=== PATIENT | male | born 1950 | race Caucasian/White ===

== ENCOUNTER 2019-03-15 08:00 | Inpatient (IN) | payer BC, OTHER ==
[~2019-03-15] VITALS: Ht 160 cm; Wt 71.3 kg
[~2019-03-15 08:00] MED LIST: ASPI81TA52 PO; ATOR-2 PO; METF100010 PO; METO-407 PO; NOVMIX SC
[2019-03-18] VITALS (19 sets, daily range): BP systolic 108–157; BP diastolic 55–77; PULSE 62–97; RESP 14–19; Ht 160 cm; Wt 71.3 kg
[2019-03-18] MEDS ORDERED: ROCURONIUM 50 MG INJ ONE ×2 (06:45→10:16)
[2019-03-18] MEDS ORDERED: ALBUMIN HUMAN 5% 250 ML INJ ONE (06:45)
[2019-03-18] MEDS ORDERED: FENTAnyl 50 MCG/ML VIAL ONE (06:45)
[2019-03-18] MEDS ORDERED: CEFAZOLIN 1 GM INJ ONE ×2 (06:45→07:40)
[2019-03-18] MEDS ORDERED: DESFLURANE 15 MIN ONE (06:45)
[2019-03-18] MEDS ORDERED: SUCCINYLCHOLINE CHLORIDE 100 MG/5 ML SYG IV ONE (06:45)
[2019-03-18] MEDS ORDERED: PROPOFOL 20 ML ONE (06:45)
[2019-03-18] MEDS ORDERED: LIDOCAINE 2% (SDV) 5 ML INJ ONE (06:45)
[2019-03-18] MEDS ORDERED: LACTATED RINGER'S 1,000 ML IV SCH (07:00)
[2019-03-18] MEDS ORDERED: CEFAZOLIN 2 GM/50 ML (PMX) 50 ML IVPB ONE (07:00)
[2019-03-18] MEDS ORDERED: GELATIN SIZE 100 SPONGE ONE (07:07)
[2019-03-18] MEDS ORDERED: POLYMYXIN/BACITRACIN 1L IRRIG ONE (07:08)
[2019-03-18] MEDS ORDERED: BUPIVACAINE 0.5%/EPI (SDV) 30 ML INJ ONE (07:08)
[2019-03-18] MEDS ORDERED: THROMBIN 20,000 UNIT VIAL ONE ×2 (07:08→14:34)
[2019-03-18] MEDS ORDERED: SOD CHLORIDE 0.9% 1,000 ML IV SCH (07:30)
[2019-03-18] MEDS ORDERED: HEPARIN 1000 UNITS/ML 10 ML INJ ONE (07:40)
[2019-03-18] MEDS ORDERED: EPHEDrine 25 MG/5 ML SYG ONE (08:22)
[2019-03-18] MEDS ORDERED: DEXAMETHASONE 4 MG/ML 5 ML INJ ONE (08:30)
[2019-03-18] MEDS ORDERED: HYDROmorphONE 2 MG/ML SYG ONE (08:41)
[2019-03-18] MEDS ORDERED: HEMOSTATIC MATRIX SYG ZFS ONE ×2 (09:06→14:36)
[2019-03-18] MEDS ORDERED: ALBUMIN HUMAN 5% 250 ML ONE (11:32)
[2019-03-18] MEDS ORDERED: THROMBIN(HUM PLAS)/FIBRINOG/CA 5 ML VIAL TOP ONE (13:59)
[2019-03-18] MEDS ORDERED: THROMBIN 5000 UNIT (RECOTHROM) VIAL ONE (14:21)
[2019-03-18] MEDS ORDERED: HYDROmorphONE 1 MG/5 ML IV SYRINGE IV PRN ×3 (14:30)
[2019-03-18] MEDS ORDERED: MEPERIDINE 25 MG INJ IV PRN (14:30)
[2019-03-18] MEDS ORDERED: ALBUTEROL 0.083% (NEB) 2.5 MG/3 ML AMP HHN PRN (14:30)
[2019-03-18] MEDS ORDERED: FENTAnyl 50 MCG/ML VIAL IV PRN ×3 (14:30)
[2019-03-18] MEDS ORDERED: DIPHENHYDRAMINE 50 MG INJ IV PRN (14:30)
[2019-03-18] MEDS ORDERED: ONDANSETRON 4 MG INJ IV PRN ×2 (14:30→15:30)
[2019-03-18] MEDS ORDERED: HYDROCODONE/APAP (5/325) TAB PO PRN (15:30)
[2019-03-18] MEDS ORDERED: NALOXONE (0.4 MG/ML) INJ IV PRN (15:30)
[2019-03-18] MEDS ORDERED: PROCHLORPERAZINE 10 MG TAB PO PRN (15:30)
[2019-03-18] MEDS ORDERED: HYDROmorphONE 0.2 MG/ML PCA IV SCH (15:30)
[2019-03-18] MEDS ORDERED: NACL 0.9% 3 ML SYG IV SCH (15:30)
[2019-03-18] MEDS ORDERED: AL HYDROX/MG HYDROX/SIMETH 30 ML CUP PO PRN (15:30)
[2019-03-18] MEDS ORDERED: ACETAMINOPHEN 325 MG TAB PO PRN (15:30)
[2019-03-18] MEDS ORDERED: GLUCAGON 1 MG INJ IM PRN (17:30)
[2019-03-18] MEDS ORDERED: GLUCOSE GEL 15 GRAM TUBE PO PRN ×2 (17:30)
[2019-03-18] MEDS ORDERED: DEXTROSE 50% 50 ML SYRINGE IV PRN ×2 (17:30)
[2019-03-18] MEDS ORDERED: GLUCOSE GEL 15 GRAM TUBE BUCCAL PRN (17:30)
[2019-03-18] MEDS: SOD CHLORIDE 0.45% 1,000 ML IV SCH (17:45)
[2019-03-18] MEDS: metFORMIN 500 MG TAB PO SCH (17:47)
[2019-03-18] MEDS: CEFAZOLIN 1 GM/50 ML (PMX) 50 ML IVPB SCH ×2 (17:48→23:23)
[2019-03-18] MEDS: INSULIN ASPART [NOVOLOG] 3 ML PEN SC SCH ×3 (18:29→22:32)
[2019-03-18] MEDS: METOPROLOL 100 MG TAB PO SCH (22:27)
[2019-03-18] MEDS: ATORVASTATIN 80 MG TAB PO SCH (22:29)
[2019-03-18] MEDS: INSULIN GLARGINE [LANTus] (100 UNITS/ML) SYG SC SCH (22:30)
[2019-03-19] MEDS: SOD CHLORIDE 0.45% 1,000 ML IV SCH ×4 (00:09→17:59)
[2019-03-19 00:39] VITALS: BP 127/56; PULSE 80; RESP 20
[2019-03-19] MEDS: ACCU-CHEK XX SCH (02:15)
[2019-03-19 02:48] VITALS: BP 127/56; PULSE 80; RESP 20
[2019-03-19] MEDS: CEFAZOLIN 1 GM/50 ML (PMX) 50 ML IVPB SCH ×2 (05:25→11:45)
[2019-03-19 08:30] VITALS: BP 114/56; PULSE 68; RESP 22
[2019-03-19] MEDS: DOCUSATE SODIUM 100 MG CAP PO SCH ×2 (08:30→20:25)
[2019-03-19] MEDS: LINAGLIPTIN 5 MG TABLET PO SCH (08:30)
[2019-03-19] MEDS: metFORMIN 500 MG TAB PO SCH ×2 (08:30→17:59)
[2019-03-19 08:31] VITALS: BP 120/57; PULSE 68; RESP 16
[2019-03-19] MEDS: METOPROLOL 100 MG TAB PO SCH ×2 (08:32→20:26)
[2019-03-19] MEDS: EMPAGLIFLOZIN 10 MG TABLET PO SCH (08:33)
[2019-03-19] MEDS: INSULIN ASPART [NOVOLOG] 3 ML PEN SC SCH ×7 (08:35→20:26)
[2019-03-19] MEDS: HYDROCODONE/APAP (5/325) TAB PO PRN ×2 (10:53→15:38)
[2019-03-19 15:02] VITALS: BP 118/57; PULSE 85; RESP 18
[2019-03-19 19:43] VITALS: BP 108/54; PULSE 81; RESP 18
[2019-03-19] MEDS: ATORVASTATIN 80 MG TAB PO SCH (20:25)
[2019-03-19] MEDS: INSULIN GLARGINE [LANTus] (100 UNITS/ML) SYG SC SCH (20:25)
[2019-03-20] MEDS: HYDROCODONE/APAP (5/325) TAB PO PRN ×3 (00:07→20:16)
[2019-03-20] MEDS: SOD CHLORIDE 0.45% 1,000 ML IV SCH ×3 (00:09→10:51)
[2019-03-20 01:55] VITALS: BP 110/56; PULSE 71; RESP 18
[2019-03-20] MEDS: ACCU-CHEK XX SCH (02:00)
[2019-03-20 04:27] VITALS: BP 99/49; PULSE 58
[2019-03-20 07:25] VITALS: BP 117/56; PULSE 75; RESP 18
[2019-03-20] MEDS: INSULIN ASPART [NOVOLOG] 3 ML PEN SC SCH ×7 (07:50→21:00)
[2019-03-20] MEDS: DOCUSATE SODIUM 100 MG CAP PO SCH ×2 (08:39→20:17)
[2019-03-20] MEDS: LINAGLIPTIN 5 MG TABLET PO SCH (08:39)
[2019-03-20] MEDS: metFORMIN 500 MG TAB PO SCH ×2 (08:39→17:58)
[2019-03-20] MEDS: METOPROLOL 100 MG TAB PO SCH ×2 (08:40→20:16)
[2019-03-20] MEDS: EMPAGLIFLOZIN 10 MG TABLET PO SCH (08:40)
[2019-03-20] MEDS ORDERED: DEXAMETHASONE 10 MG/ML 1 ML INJ IV ONE (12:00)
[2019-03-20 19:22] VITALS: BP 122/56; PULSE 76; RESP 18
[2019-03-20] MEDS: ATORVASTATIN 80 MG TAB PO SCH (20:16)
[2019-03-20] MEDS: INSULIN GLARGINE [LANTus] (100 UNITS/ML) SYG SC SCH (20:20)
[2019-03-21] MEDS: HYDROCODONE/APAP (5/325) TAB PO PRN ×3 (00:08→21:38)
[2019-03-21 01:47] VITALS: BP 116/55; PULSE 61; RESP 16
[2019-03-21] MEDS: ACCU-CHEK XX SCH (02:00)
[2019-03-21 08:25] VITALS: BP 117/56; PULSE 71; RESP 18
[2019-03-21] MEDS: INSULIN ASPART [NOVOLOG] 3 ML PEN SC SCH ×7 (08:50→21:00)
[2019-03-21] MEDS: EMPAGLIFLOZIN 10 MG TABLET PO SCH (08:52)
[2019-03-21] MEDS: metFORMIN 500 MG TAB PO SCH ×2 (08:53→17:30)
[2019-03-21] MEDS: LINAGLIPTIN 5 MG TABLET PO SCH (08:53)
[2019-03-21] MEDS: METOPROLOL 100 MG TAB PO SCH ×2 (08:53→20:50)
[2019-03-21] MEDS: DOCUSATE SODIUM 100 MG CAP PO SCH ×2 (08:53→21:00)
[2019-03-21 15:20] VITALS: BP 127/59; PULSE 75; RESP 18
[2019-03-21] MEDS ORDERED: ARTIFICIAL TEARS 15 ML OPH BOTH EYES PRN (16:00)
[2019-03-21 19:55] VITALS: BP 139/59; PULSE 67; RESP 18
[2019-03-21] MEDS: ATORVASTATIN 80 MG TAB PO SCH (20:50)
[2019-03-21] MEDS: INSULIN GLARGINE [LANTus] (100 UNITS/ML) SYG SC SCH (21:37)
[2019-03-22] MEDS: HYDROCODONE/APAP (5/325) TAB PO PRN ×2 (01:30→05:39)
[2019-03-22] MEDS: ACCU-CHEK XX SCH (02:00)
[2019-03-22 02:43] VITALS: BP 143/63; PULSE 70; RESP 18
[2019-03-22] MEDS: INSULIN ASPART [NOVOLOG] 3 ML PEN SC SCH ×7 (07:50→21:00)
[2019-03-22] MEDS: DOCUSATE SODIUM 100 MG CAP PO SCH ×2 (09:00→21:00)
[2019-03-22 09:09] VITALS: BP 156/65; PULSE 77; RESP 18
[2019-03-22] MEDS: LINAGLIPTIN 5 MG TABLET PO SCH (09:41)
[2019-03-22] MEDS: EMPAGLIFLOZIN 10 MG TABLET PO SCH (09:41)
[2019-03-22] MEDS: METOPROLOL 100 MG TAB PO SCH ×2 (09:42→21:18)
[2019-03-22] MEDS: metFORMIN 500 MG TAB PO SCH (09:43)
[2019-03-22] MEDS ORDERED: LOPERAMIDE 2 MG CAP PO ONE (13:00)
[2019-03-22 16:15] VITALS: BP 138/66; PULSE 71; RESP 18
[2019-03-22] MEDS ORDERED: DIPHENOXYLATE/ATROPINE TAB PO PRN (17:30)
[2019-03-22] MEDS: INSULIN GLARGINE [LANTus] (100 UNITS/ML) SYG SC SCH (20:00)
[2019-03-22 20:14] VITALS: BP 130/68; PULSE 80; RESP 18
[2019-03-22] MEDS: metFORMIN (XR) 500 MG TAB PO SCH (21:00)
[2019-03-22] MEDS: ATORVASTATIN 80 MG TAB PO SCH (21:18)
[2019-03-23] MEDS: ACCU-CHEK XX SCH (02:26)
[2019-03-23 02:30] VITALS: BP 135/65; PULSE 80; RESP 18
[2019-03-23 08:17] VITALS: BP 140/63; PULSE 79; RESP 16
[2019-03-23] MEDS: metFORMIN (XR) 500 MG TAB PO SCH ×2 (09:00→20:58)
[2019-03-23] MEDS: DOCUSATE SODIUM 100 MG CAP PO SCH ×2 (09:00→21:00)
[2019-03-23] MEDS: LINAGLIPTIN 5 MG TABLET PO SCH (09:01)
[2019-03-23] MEDS: METOPROLOL 100 MG TAB PO SCH ×2 (09:01→21:01)
[2019-03-23] MEDS: HYDROCODONE/APAP (5/325) TAB PO PRN (09:02)
[2019-03-23] MEDS: EMPAGLIFLOZIN 10 MG TABLET PO SCH (09:02)
[2019-03-23] MEDS: INSULIN ASPART [NOVOLOG] 3 ML PEN SC SCH ×7 (09:07→21:00)
[2019-03-23 15:53] VITALS: BP 155/64; PULSE 81; RESP 16
[2019-03-23 19:16] VITALS: BP 131/61; PULSE 89; RESP 12
[2019-03-23 20:00] VITALS: BP 153/70; PULSE 87; RESP 20
[2019-03-23 20:30] VITALS: BP 133/71; PULSE 76
[2019-03-23] MEDS: ATORVASTATIN 80 MG TAB PO SCH (21:00)
[2019-03-23] MEDS: INSULIN GLARGINE [LANTus] (100 UNITS/ML) SYG SC SCH (21:17)
[2019-03-24] MEDS: HYDROCODONE/APAP (5/325) TAB PO PRN ×3 (01:30→13:30)
[2019-03-24] MEDS: ACCU-CHEK XX SCH (01:37)
[2019-03-24 02:00] VITALS: BP 159/69; PULSE 80; RESP 20
[2019-03-24 07:43] VITALS: BP 133/61; PULSE 81; RESP 18
[2019-03-24] MEDS: DOCUSATE SODIUM 100 MG CAP PO SCH (08:34)
[2019-03-24] MEDS: EMPAGLIFLOZIN 10 MG TABLET PO SCH (08:34)
[2019-03-24] MEDS: metFORMIN (XR) 500 MG TAB PO SCH (08:35)
[2019-03-24] MEDS: LINAGLIPTIN 5 MG TABLET PO SCH (08:35)
[2019-03-24] MEDS: METOPROLOL 100 MG TAB PO SCH (08:35)
[2019-03-24] MEDS: INSULIN ASPART [NOVOLOG] 3 ML PEN SC SCH ×4 (08:36→12:38)
== END 2019-03-24 14:00 | DRG 455 ==
LOC: REC 03-18 06:14 → MS1 03-18 17:27
PROVIDERS: ADMIT Orthopaedic Surgery; ATTEND Orthopaedic Surgery
PROC: 0SG0071 Fusion of Lumbar Vertebral Joint with Autologous Tissue Substitute, Posterior Approach, Posterior Column, Open Approach (ICD-10-PCS; 2019-03-18)
PROC: 4A11X4G Monitoring of Peripheral Nervous Electrical Activity, Intraoperative, External Approach (ICD-10-PCS; 2019-03-18)
PROC: 0SG30A0 Fusion of Lumbosacral Joint with Interbody Fusion Device, Anterior Approach, Anterior Column, Open Approach (ICD-10-PCS; principal; 2019-03-18 07:30)
DX: M43.17 Spondylolisthesis, lumbosacral region (principal); M51.37 Other intervertebral disc degeneration, lumbosacral region; E11.9 Type 2 diabetes mellitus without complications; I10 Essential (primary) hypertension; E78.5 Hyperlipidemia, unspecified; I25.10 Atherosclerotic heart disease of native coronary artery without angina pectoris; Z95.1 Presence of aortocoronary bypass graft; Z79.82 Long term (current) use of aspirin; Z79.4 Long term (current) use of insulin; R15.9 Full incontinence of feces; R19.7 Diarrhea, unspecified
CPT/HCPCS: 72110; 72131; 80048; 80053; 82962; 83036; 85014; 85018; 85025; 86850; 86900; 86901; 86920; 87075; 88304; 97110; 97116; 97162; 97530; C1713; C1765; C9250; J0690; J1100; J1170; J1644; J1815; J2405; J3010; P9045